=== PATIENT | female | born 1960 | race Caucasian/White ===

== ENCOUNTER 2018-04-28 11:00 | Outpatient (CLI) | payer OTHER ==
[~2018-04-28 11:00] MED LIST: NABUMETONE500 MG PO; PERCOCET 5/3251 TAB PO
== END 2018-04-28 17:00 | disposition home or self-care (01) ==
LOC: MRI 11:00
DX: M54.12 Radiculopathy, cervical region (principal); M54.17 Radiculopathy, lumbosacral region; M17.11 Unilateral primary osteoarthritis, right knee; M17.12 Unilateral primary osteoarthritis, left knee
CPT/HCPCS: 72141; 72148

== ENCOUNTER 2022-06-05 11:20 | Outpatient (CLI) | payer OTHER | END 2022-06-05 15:16 | disposition home or self-care (01) | LOC: MRI 11:20 | PROVIDERS: ATTEND Orthopaedic Surgery | DX: M54.2 Cervicalgia (principal); M25.512 Pain in left shoulder | CPT/HCPCS: 73221 ==

== ENCOUNTER 2025-08-09 09:00 | Outpatient (CLI) | payer OTHER | END 2025-08-09 09:01 | disposition home or self-care (01) | LOC: NUCLEAR 09:00 | PROVIDERS: ATTEND Internal Medicine Endocrinology, Diabetes & Metabolism | DX: K82.9 Disease of gallbladder, unspecified (principal) | CPT/HCPCS: 78227; A9537 ==